=== PATIENT | female | born 1965 | race Caucasian/White ===

== ENCOUNTER 2017-08-30 11:35 | Emergency (ER) | payer SELFPAY ==
[~2017-08-30] VITALS: Ht 144.8 cm; Wt 61.7 kg
[2017-08-30 11:40] VITALS: BP 124/88
--- NOTE | 2017-08-30 12:00 | NUR ---
52F BIB SELF WITH C/O PERSISTANT COUGH, CHEST/NASAL CONGESTION, FEVER CHILLS, 10/10 BODYACHES, FATIGUE, AND SOB X 8 DAYS. PT ALSO REPORTS OF ANTERIOR CHEST WALL PAIN WITH COUGH. PT IS AOX4 WITH STEADY GAIT. RR ARE EVEN AND UNLABORED. NAD AT THIS TIME. AWAITING ER MD MCCOY. WILL CONTINUE TO MONITOR.
--- NOTE | 2017-08-30 13:27 | NUR ---
Patient discharged with v/s stable. Written and verbal after care instructions given and explained. Patient alert, oriented and verbalized understanding of instructions. Ambulatory with steady gait. All questions addressed prior to discharge. ID band removed. Patient advised to follow up with PMD. Rx of aUGMENTIN AND pREDNISONE given. Patient educated on indication of medication including possible reaction and side effects. Opportunity to ask questions provided and answered.
[2017-08-30 13:28] VITALS: BP 112/71
== END 2017-08-30 13:27 | disposition home or self-care (01) ==
LOC: MED 11:35
DX: J32.9 Chronic sinusitis, unspecified (principal)
CPT/HCPCS: 36415; 71045; 87804; 99285